=== PATIENT | male | born 1950 | race Caucasian/White ===

== ENCOUNTER 2020-08-15 21:40 | Emergency (ER) | payer MEDICARE, OTHER ==
[~2020-08-15] VITALS: Ht 175.3 cm; Wt 93.0 kg
[2020-08-15] MEDS ORDERED: VYZULTA5 ML OPHTHALMIC (21:55)
[2020-08-15] MEDS ORDERED: DORZOLAMIDE 2%10 ML OPHTHALMIC (21:55)
[2020-08-15] MEDS ORDERED: OLOPATADINE HC2.5 ML OPHTHALMIC (21:56)
[2020-08-15] MEDS ORDERED: PROAIR HFA8.5 GM INH (21:57)
[2020-08-15] MEDS ORDERED: BREZTRI AEROS10.7 GM INH (21:57)
[2020-08-15] MEDS ORDERED: NUCALA100 MG/11 SUBQ (21:58)
[2020-08-15] MEDS ORDERED: CELEXA 10 MG TA10 M1 PO (21:58)
[2020-08-15] MEDS ORDERED: VITAMIN D310 MC2 PO (21:58)
[2020-08-15] MEDS ORDERED: METFORMIN HCL500 M3 PO (21:59)
[2020-08-15] MEDS ORDERED: MONTELUKAST SODI4 M1 PO (21:59)
[2020-08-15] MEDS ORDERED: GLIMEPIRIDE4 MG PO (21:59)
[2020-08-15] MEDS ORDERED: FLAX SEED OIL1 EACH PO (22:00)
[2020-08-15] MEDS ORDERED: FAMOTIDINE 20 M20 MG PO (22:00)
[2020-08-15] MEDS ORDERED: ZYRTEC10 M5 PO (22:01)
[2020-08-15] MEDS ORDERED: DILTIAZEM ER180 M2 PO (22:01)
[2020-08-15] MEDS ORDERED: NEXIUM20 M1 PO (22:01)
[2020-08-15] MEDS ORDERED: LEVEMIR100 UNIT/1 SUBQ (22:02)
[2020-08-15 22:42] LABS: ABSOLUTE LYMPHOCYTES 1.7 thou/uL (0.8-5.3); ABSOLUTE NEUTROPHILS 8.9 thou/uL (1.6-8.1); BASOPHILS 0.2 %; HEMATOCRIT 36.9 % (42.0-52.0); HEMOGLOBIN 12.4 gm/dL (14.0-18.0); LYMPHOCYTES 14.3 %; MCH 32.9 pg (26.0-34.0); MCHC 33.6 g/dL (28.0-37.0); MCV 97.8 fL (80.0-100.0); MONOCYTES 8.6 %; MPV 7.6 fl. (7.2-11.1); NUCLEATED RBCS 0 /100WBC; PLATELET COUNT* 234 thou/uL (150-400); POLYS 76.9 %; RBC 3.77 mil/uL (4.50-6.00); RDW-CV 12.7 % (10.5-14.5); WBC 11.6 thou/uL (4.0-11.0)
[2020-08-15 22:44] LABS: URINE BILIRUBIN NEGATIVE (Negative); URINE BLOOD NEGATIVE (Negative); URINE CLARITY CLEAR; URINE COLOR YELLOW; URINE GLUCOSE-RANDOM NEGATIVE (Negative); URINE KETONES NEGATIVE (Negative); URINE LEUKOCYTES-REFLEX NEGATIVE (Negative); URINE NITRITE-REFLEX NEGATIVE (Negative); URINE PROTEIN NEGATIVE (Negative); URINE SPECIFIC GRAVITY 1.015 (1.005-1.030)
[2020-08-15 22:57] LABS: CALCIUM 9.7 mg/dL (8.5-10.1); CREATININE 2.1 mg/dL (0.6-1.3); POTASSIUM 4.7 mmol/L (3.5-5.1)
[2020-08-15 23:01] LABS: ALBUMIN 3.9 g/dL (3.4-5.0); TOTAL BILIRUBIN 0.3 mg/dL (<0.1-1.0); TOTAL PROTEIN 7.6 g/dL (6.4-8.2)
[2020-08-16] MEDS ORDERED: HYDROCODON-ACE1 EAC7 PO (03:20)
[2020-08-16] MEDS ORDERED: KEFLEX500 M1 PO (03:20)
[2020-08-16] MEDS ORDERED: FLOMAX0.4 MG PO (03:20)
[2020-08-16 03:42] VITALS: BP 126/74
== END 2020-08-16 03:42 | disposition home or self-care (01) ==
LOC: M.ERS 21:40
PROVIDERS: Personal Emergency Response Attendant
DX: N13.1 Hydronephrosis with ureteral stricture, not elsewhere classified (principal); N23 Unspecified renal colic; E11.9 Type 2 diabetes mellitus without complications; J45.909 Unspecified asthma, uncomplicated; Z88.6 Allergy status to analgesic agent; Z88.2 Allergy status to sulfonamides; Z79.4 Long term (current) use of insulin